=== PATIENT | male | born 1965 | race Caucasian/White ===

== ENCOUNTER 2019-06-16 15:24 | Inpatient (IN) | payer BC, MEDICAID, OTHER ==
[~2019-06-16] VITALS: Ht 175.3 cm; Wt 96.6 kg
--- NOTE | 2019-06-16 15:34 | NUR ---
STEMI. Code cardiac called. Dr. Leiva paged.
--- NOTE | 2019-06-16 15:43 | NUR ---
Dr. Leiva returned page to
[2019-06-16 15:52] LABS: BASOPHILS # (AUTO) 0.02 x10^3/uL (0-0.1); BASOPHILS % (AUTO) 0 % (0-1); EOSINOPHILS # (AUTO) 0.05 x10^3/uL (0-0.4); EOSINOPHILS % (AUTO) 1 % (1-7); LYMPHOCYTES # (AUTO) 1.01 x10^3/uL (1-3.4); LYMPHOCYTES % (AUTO) 12 % (22-44); MD NO; MEAN CORPUSCULAR HEMOGLOBIN 31.7 pg (27.5-34.5); MEAN CORPUSCULAR VOLUME 93.3 fL (81-97); MEAN PLATELET VOLUME 8.6 fL (7.4-10.4); MONOCYTES # (AUTO) 0.38 x10^3/uL (0.2-0.8); MONOCYTES % (AUTO) 5 % (2-9); NEUTROPHILS # (AUTO) 6.69 x10^3/uL (1.8-6.8); NEUTROPHILS % (AUTO) 82 % (42-75); PLATELET COUNT 162 x10^3/uL (130-400); RED BLOOD COUNT 5.45 x10^6/uL (4.38-5.82); RED CELL DISTRIBUTION WIDTH 12.6 % (9.4-14.8)
[2019-06-16] MEDS ORDERED: SODIUM CHLORIDE FLUSH 10ML SYR IVF PRN (16:00)
[2019-06-16] MEDS ORDERED: SODIUM CHLORIDE FLUSH 10ML SYR IVF ONE (16:00)
[2019-06-16 16:01] LABS: INTERNATIONAL NORMALIZED RATIO 0.91 (0.93-1.1); PROTHROMBIN TIME 9.6 Seconds (9.6-11.5)
[2019-06-16] MEDS ORDERED: FENTANYL PF 100 MCG/2ML ONE (16:01)
[2019-06-16] MEDS ORDERED: BIVALIRUDIN 250 MG ONE ×2 (16:01→17:04)
[2019-06-16] MEDS ORDERED: VERAPAMIL 2.5 MG/ML, 2ML ONE (16:01)
[2019-06-16] MEDS ORDERED: TICAGRELOR 90 MG TABLET ONE (16:01)
[2019-06-16] MEDS ORDERED: MIDAZOLAM 1 MG/ML, 5ML ONE (16:01)
[2019-06-16] MEDS ORDERED: HEPARIN 1,000 UNITS/ML, 10ML ONE (16:01)
[2019-06-16 16:02] LABS: ALBUMIN 4.6 g/dL (3.4-5.0); ANION GAP 6 mmol/L (5-15); CHLORIDE 106 mmol/L (98-107); CREATININE 1.12 mg/dL (0.7-1.3)
[2019-06-16] MEDS ORDERED: LIDOCAINE 2%, 20ML ONE (16:02)
--- NOTE | 2019-06-16 16:05 | NUR ---
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
[2019-06-16 16:06] LABS: TROPONIN I 0.024 ng/mL (0.000-0.045)
--- NOTE | 2019-06-16 16:08 | NUR ---
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 greenhouse laborer team here ready for pt.
--- NOTE | 2019-06-16 16:15 | NUR ---
PT TO RETAIL MARKETING COORDINATOR AT 1612.
[2019-06-16] MEDS ORDERED: ASPIRIN 325 MG TABLET EC ONE (16:58)
[2019-06-16] MEDS ORDERED: BIVALIRUDIN 250 MG in SODIUM CHLORIDE 0.9% 50 ML IV SCH (17:01)
[2019-06-16] MEDS: SODIUM CHLORIDE 0.9% 1,000 ML IV SCH (17:26)
[2019-06-16] MEDS ORDERED: ONDANSETRON 2MG/ML, 2ML IVPush PRN (17:30)
[2019-06-16] MEDS ORDERED: ACETAMINOPHEN 325 MG TABLET PO PRN (17:30)
[2019-06-16] MEDS ORDERED: ZOLPIDEM 5MG TABLET PO PRN (17:30)
[2019-06-16] MEDS: METOPROLOL TARTRATE 25 MG TABLET PO SCH (18:26)
[2019-06-16] MEDS: ATORVASTATIN 80 MG TABLET PO SCH (20:30)
[2019-06-16] MEDS: TICAGRELOR 90 MG TABLET PO SCH (20:31)
[2019-06-16] MEDS: OXYcodone/APAP 5/325MG TABLET PO PRN (22:05)
[2019-06-17] MEDS: SODIUM CHLORIDE 0.9% 1,000 ML IV SCH (01:01)
[2019-06-17] MEDS: OXYcodone/APAP 5/325MG TABLET PO PRN ×3 (03:58→16:45)
[2019-06-17 04:15] VITALS: BP 112/70
[2019-06-17 04:23] LABS: ANION GAP 6 mmol/L (5-15); CALCIUM 8.4 mg/dL (8.5-10.1); CHLORIDE 109 mmol/L (98-107); CREATININE 0.81 mg/dL (0.7-1.3)
[2019-06-17] MEDS: METOPROLOL TARTRATE 25 MG TABLET PO SCH ×2 (05:37→17:52)
[2019-06-17] MEDS: ASPIRIN 81 MG TABLET EC PO SCH (08:42)
[2019-06-17] MEDS: TICAGRELOR 90 MG TABLET PO SCH ×2 (08:42→19:51)
[2019-06-17 10:43] VITALS: BP 114/74
[2019-06-17 13:00] VITALS: BP 114/74
[2019-06-17 19:08] VITALS: BP 115/74
[2019-06-17] MEDS: ATORVASTATIN 80 MG TABLET PO SCH (19:51)
[2019-06-18 03:38] VITALS: BP 139/79
[2019-06-18] MEDS: OXYcodone/APAP 5/325MG TABLET PO PRN ×2 (03:46→18:41)
[2019-06-18] MEDS: METOPROLOL TARTRATE 25 MG TABLET PO SCH ×2 (05:14→18:32)
[2019-06-18 05:44] LABS: ANION GAP 7 mmol/L (5-15); CALCIUM 8.5 mg/dL (8.5-10.1); CHLORIDE 108 mmol/L (98-107)
[2019-06-18 05:48] LABS: CHOL/HDL RATIO 3.6; CHOLESTEROL, TOTAL 114 mg/dL (140-239); CREATININE 0.86 mg/dL (0.7-1.3); HDL CHOL % 28 % (26-37); HDL CHOLESTEROL (DIRECT) 32 mg/dL (40-60); LDL CHOLESTEROL,CALCULATED 65 mg/dL (54-169); TRIGLYCERIDES 87 mg/dL (50-200); VLDL CHOLESTEROL 17 mg/dL (0-25)
[2019-06-18 07:45] VITALS: BP 125/78
[2019-06-18] MEDS: TICAGRELOR 90 MG TABLET PO SCH ×2 (08:07→20:36)
[2019-06-18] MEDS: ASPIRIN 81 MG TABLET EC PO SCH (08:07)
[2019-06-18] MEDS: SODIUM CHLORIDE 0.9% 1,000 ML IV SCH ×2 (08:09→20:00)
[2019-06-18] MEDS ORDERED: BIVALIRUDIN 250 MG ONE (13:35)
[2019-06-18] MEDS ORDERED: FENTANYL PF 100 MCG/2ML ONE (13:35)
[2019-06-18] MEDS ORDERED: MIDAZOLAM 1 MG/ML, 5ML ONE (13:35)
[2019-06-18] MEDS ORDERED: VERAPAMIL 2.5 MG/ML, 2ML ONE (13:35)
[2019-06-18] MEDS ORDERED: TICAGRELOR 90 MG TABLET ONE (13:35)
[2019-06-18] MEDS ORDERED: LIDOCAINE-MPF 1%, 5ML ONE (13:36)
[2019-06-18] MEDS ORDERED: HEPARIN 1,000 UNITS/ML, 10ML ONE (13:36)
[2019-06-18] MEDS ORDERED: NITROGLYCERIN 5 MG/ML, 10ML ONE (14:04)
[2019-06-18 20:11] VITALS: BP 145/83
[2019-06-18] MEDS: ATORVASTATIN 80 MG TABLET PO SCH (20:36)
[2019-06-19 00:05] VITALS: BP 121/88
[2019-06-19] MEDS: OXYcodone/APAP 5/325MG TABLET PO PRN (00:53)
[2019-06-19 04:44] VITALS: BP 115/76
[2019-06-19] MEDS: METOPROLOL TARTRATE 25 MG TABLET PO SCH (05:04)
[2019-06-19] MEDS: SODIUM CHLORIDE 0.9% 1,000 ML IV SCH (05:04)
[2019-06-19 06:09] LABS: ANION GAP 6 mmol/L (5-15); CALCIUM 8.4 mg/dL (8.5-10.1); CHLORIDE 111 mmol/L (98-107)
[2019-06-19 06:12] LABS: CREATININE 0.77 mg/dL (0.7-1.3)
[2019-06-19 06:42] VITALS: BP 118/79
[2019-06-19] MEDS ORDERED: NITR0.4T28 SL (09:20)
[2019-06-19] MEDS ORDERED: TICA90TA PO (09:20)
[2019-06-19] MEDS ORDERED: ASPI81TA45 PO (09:20)
[2019-06-19] MEDS ORDERED: METO25TA35 PO (09:20)
[2019-06-19] MEDS ORDERED: ACET325T26 PO (09:20)
[2019-06-19] MEDS ORDERED: ATOR-2 PO (09:20)
[2019-06-19] MEDS: ASPIRIN 81 MG TABLET EC PO SCH (09:24)
[2019-06-19] MEDS: TICAGRELOR 90 MG TABLET PO SCH (09:24)
== END 2019-06-19 13:01 | disposition home or self-care (01) | DRG 247 ==
LOC: ED 15:49 → EDIP 15:58 → CCU 17:19 → 5SO 06-17 10:18 → DCLOUNGE 06-19 12:30
PROVIDERS: ADMIT Internal Medicine Cardiovascular Disease; ATTEND Internal Medicine Cardiovascular Disease
PROC: 027035Z Dilation of Coronary Artery, One Artery with Two Drug-eluting Intraluminal Devices, Percutaneous Approach (ICD-10-PCS; principal; 2019-06-16)
PROC: 02C03ZZ Extirpation of Matter from Coronary Artery, One Artery, Percutaneous Approach (ICD-10-PCS; 2019-06-16)
PROC: 4A023N7 Measurement of Cardiac Sampling and Pressure, Left Heart, Percutaneous Approach (ICD-10-PCS; 2019-06-16)
PROC: B2111ZZ Fluoroscopy of Multiple Coronary Arteries using Low Osmolar Contrast (ICD-10-PCS; 2019-06-16)
PROC: B2151ZZ Fluoroscopy of Left Heart using Low Osmolar Contrast (ICD-10-PCS; 2019-06-16)
PROC: 027034Z Dilation of Coronary Artery, One Artery with Drug-eluting Intraluminal Device, Percutaneous Approach (ICD-10-PCS; 2019-06-18)
DX: I21.19 ST elevation (STEMI) myocardial infarction involving other coronary artery of inferior wall (principal); F17.213 Nicotine dependence, cigarettes, with withdrawal; E78.5 Hyperlipidemia, unspecified; F41.9 Anxiety disorder, unspecified; I25.10 Atherosclerotic heart disease of native coronary artery without angina pectoris; I25.82 Chronic total occlusion of coronary artery; Z85.46 Personal history of malignant neoplasm of prostate; Z90.79 Acquired absence of other genital organ(s)
CPT/HCPCS: 36415; 93458; 99285; C9600; J3490; 0399T; 71045; 80047; 80048; 80061; 82040; 83880; 84484; 85014; 85018; 85025; 85610; 85730; 87081; 93005; 93306; 99156; 99157; C1760; C1769; C1894; G0378; J0583; J1644; J2250; J2405; J3010; C1725; C1757; C1874; C1887; J7030; Q9967

== ENCOUNTER → 2019-08-28 | Outpatient (CLI) | payer MEDICAID ==
[~2019-08-28] MED LIST: ACET325T26 PO; ASPI81TA45 PO; ATOR-2 PO; METO25TA35 PO; NITR0.4T28 SL; TICA90TA PO
== END | disposition home or self-care (01) ==
LOC: CFH 10:34
PROVIDERS: ATTEND Internal Medicine Cardiovascular Disease
DX: I35.8 Other nonrheumatic aortic valve disorders (principal); I21.11 ST elevation (STEMI) myocardial infarction involving right coronary artery; I10 Essential (primary) hypertension; E78.5 Hyperlipidemia, unspecified; F17.200 Nicotine dependence, unspecified, uncomplicated; Z85.46 Personal history of malignant neoplasm of prostate
CPT/HCPCS: 93306